=== PATIENT | male | born 1945 | race Caucasian/White ===

== ENCOUNTER 2018-01-22 14:47 | Inpatient (IN) | payer MEDICARE ==
[~2018-01-22] VITALS: Ht 167.6 cm; Wt 83.1 kg
[~2018-01-22 14:47] MED LIST: ASPIRIN E.C. 8181 MG PO; CRESTOR40 MG PO; CYMBALTA60 MG PO; DOCUSATE SODIU100 MG PO; FIBERCON 6625 MG/TAB PO; LIDODERM 5% PATC1 EA TP; NIACIN500 M3 PO; OMEGA-3 1000 MG1 CAP PO; PEPTO-BISMOL262 M1 PO; PERCOCET 325 MG1 TA2 PO; PLAVIX 75MG TAB75 MG PO; PREVACID 30MG30 M1 PO; REGLAN 10MG10 MG/TAB PO; ULTRAM 50MG TAB50 MG PO
[2018-01-22 15:14] VITALS: BP 121/62; PULSE 87; TEMP 97.9
[2018-01-22] MEDS ORDERED: COREG 3.123.125 MG/T PO (15:48)
[2018-01-22] MEDS ORDERED: LOVENOX 4040 MG/0.4 SQ (15:54)
[2018-01-22] MEDS ORDERED: AMARYL 2MG T2 MG/TAB PO (15:55)
[2018-01-22] MEDS ORDERED: NOVOLOG FLEX100 U/ML SQ (16:05)
[2018-01-22] MEDS ORDERED: TYLENOL 500MG500 MG PO (16:06)
[2018-01-22] MEDS ORDERED: MASON NATURAL N1 CAP PO (16:12)
[2018-01-23 06:00] VITALS: BP 112/50; PULSE 74; TEMP 97.9
[2018-01-23 17:28] VITALS: BP 113/46; PULSE 70; TEMP 98.4
[2018-01-24 06:00] VITALS: BP 115/56; PULSE 79; TEMP 98.6
[2018-01-24 15:10] VITALS: BP 136/62; PULSE 78; TEMP 98.5
[2018-01-25 05:58] VITALS: BP 119/62; PULSE 79; TEMP 98
[2018-01-25 15:51] VITALS: BP 146/70; PULSE 84; TEMP 98.5
[2018-01-26 06:00] VITALS: BP 123/46; PULSE 74; TEMP 98.5
[2018-01-26 15:43] VITALS: BP 142/56; PULSE 71; TEMP 98.5
[2018-01-27 06:00] VITALS: BP 135/64; PULSE 84; TEMP 98
[2018-01-27 17:39] VITALS: BP 135/62; PULSE 79; TEMP 98.2
[2018-01-28 06:00] VITALS: BP 133/77; PULSE 86; TEMP 98.2
[2018-01-28 15:01] VITALS: BP 149/63; PULSE 88; TEMP 97.8
[2018-01-29 04:42] VITALS: BP 150/68; PULSE 83; TEMP 98.8
[2018-01-29 16:23] VITALS: BP 143/64; PULSE 89; TEMP 97.9
[2018-01-30 06:05] VITALS: BP 128/71; PULSE 80; TEMP 98.2
[2018-01-30 15:08] VITALS: BP 142/59; PULSE 89; TEMP 97.4
[2018-01-31 05:45] VITALS: BP 141/74; PULSE 85; TEMP 98.1
[2018-01-31 15:51] VITALS: BP 113/50; PULSE 81; TEMP 98.2
[2018-01-31 18:52] VITALS: BP 141/69
[2018-02-01 05:35] VITALS: BP 117/61; PULSE 77; TEMP 98.5
[2018-02-01 17:27] VITALS: BP 133/61; PULSE 79; TEMP 98.1
[2018-02-02 05:50] VITALS: BP 126/67; PULSE 82; TEMP 97.9
[2018-02-02 12:35] LABS: CALCIUM 9.6 mg/dL (8.4-10.2); CREATININE, serum 1.08 mg/dL (0.66-1.25); HEMATOCRIT 40.9 % (42.0-52.0); MAGNESIUM 2.2 mg/dL (1.6-2.3)
[2018-02-02 16:20] VITALS: BP 145/63; PULSE 85; TEMP 98
[2018-02-03 05:31] VITALS: BP 128/60; PULSE 79; TEMP 98.2
[2018-02-03] MEDS ORDERED: GICOCKTAIL PO (14:52)
[2018-02-03] MEDS ORDERED: PROTONIX 40MG T40 MG PO (14:54)
== END 2018-02-03 16:30 | disposition home health service (06) | DRG 57 ==
PROVIDERS: Internal Medicine
DX: I69.322 Dysarthria following cerebral infarction (principal); I69.393 Ataxia following cerebral infarction; I10 Essential (primary) hypertension; E11.9 Type 2 diabetes mellitus without complications; I25.10 Atherosclerotic heart disease of native coronary artery without angina pectoris; Z95.1 Presence of aortocoronary bypass graft; Z95.5 Presence of coronary angioplasty implant and graft; F17.210 Nicotine dependence, cigarettes, uncomplicated; Z85.79 Personal history of other malignant neoplasms of lymphoid, hematopoietic and related tissues; Z85.46 Personal history of malignant neoplasm of prostate
CPT/HCPCS: 99222-AI; 99232-AI; 99239; J1650; J1815